=== PATIENT | female | born 1965 | race Caucasian/White ===

== ENCOUNTER → 2017-12-14 10:44 | Outpatient (CLI) | payer MEDICAID, SELFPAY ==
[2017-12-18 16:28] LABS: HPV Reflexed? NOT INDICATED
== END ==
PROVIDERS: Family Provider Family Medicine; PCP Family Medicine; Visit Provider Obstetrics & Gynecology
DX: Z12.4 Encounter for screening for malignant neoplasm of cervix (principal)
CPT/HCPCS: 88175; G0145

== ENCOUNTER → 2018-03-26 16:11 | Outpatient (CLI) | payer MEDICAID, SELFPAY ==
--- NOTE | 2018-03-26 16:15 | BI_ITS ---
MAMMOGRAPHY - BILATERAL SCREENING REASON FOR EXAM: Female, 52 years old. Routine annual screening examination. PERTINENT HISTORY: Non-contributory. TECHNIQUE: Digital bilateral breast chandan (3D mammographic acquisition) in the CC and MLO projections. 2-D mediolateral oblique (MLO) and craniocaudad (CC) views of both breasts were obtained. CAD: Full Field Digital Mammography with Computer Added Detection was performed. COMPARISON: None. Baseline examination. FINDINGS: Breast Composition: There are scattered areas of fibroglandular density. There are no dominant masses or suspicious calcifications. No other significant abnormalities are identified. BI/SCREENING MAMM (CAD), BILAT IMPRESSION: Negative screening mammogram. Yearly followup mammogram recommended. (A) ASSESSMENT CATEGORY: BIRADS Category 1: Negative. A letter regarding these results will be sent to the patient by the facility within 30 days. Approximately 10% of breast cancers are not detected by mammography. A normal mammogram should not delay biopsy of a clinically suspicious abnormality. [id number] Electronically Signed: Logan Ashley MD at 8:45 EDT Tel [phone], Service support ,
== END ==
PROVIDERS: Family Provider Family Medicine; PCP Family Medicine; Visit Provider Obstetrics & Gynecology
DX: Z12.31 Encounter for screening mammogram for malignant neoplasm of breast (principal)
CPT/HCPCS: 77063; 77067

== ENCOUNTER → 2018-04-02 09:16 | Outpatient (CLI) | payer MEDICAID, SELFPAY ==
[2018-04-02 11:58] LABS: Absolute Lymphocyte Count 3.04 X10^3/ul (0.83-4.51); Absolute Neutrophil Count 3.6 X10^3/uL (2.0-7.7); Basophil# 0.04 X10^3/uL; Basophil% 0.5 % (0-1); Eosinophil# 0.27 X10^3/uL; Eosinophils% 3.6 % (0-5); Hematocrit 46.2 % (37-47); Hemoglobin 14.8 g/dl (12.0-15.0); Lymphocyte # 3.04 X10^3/ul (4.0); Lymphocyte % 40.3 % (19-41); Mean Corpuscular Hgb 26.2 pg (27.0-32.0); Mean Corpuscular Volume 81.9 fL (81-99); Mean Platelet Vol. 10.6 fl (6.2-12.0); Monocyte# 0.61 X10^3/uL; Monocyte% 8.1 % (0-10); Neutrophil # 3.57 X10^3/uL (2.7-7.7); Neutrophil % 47.2 % (47-70); POSITIVE COUNT NO; POSITIVE DIFFERENTIAL NO; POSITIVE MORPHOLOGY NO; Platelet Count 214 K/mm3 (150-450); RBC Distribution Width CV 14.2 % (11.6-14.6); RBC Distribution Width SD 42.3 fl (35.1-43.9); Red Blood Count 5.64 M/mm3 (4.2-5.4); White Blood Count 7.6 K/mm3 (4.4-11.0)
[2018-04-02 12:18] LABS: ALB/GLOB Ratio 1.2 RATIO (0.9-2.4); AST(SGOT) 30 U/L (15-37); Alanine Aminotransfer ALT/SGPT 46 U/L (13-56); Albumin, Serum 3.9 g/dL (3.2-5.0); Alkaline Phosphatase 87 U/L (45-117); Anion Gap 7 (5-15); BUN 11 mg/dL (7-18); BUN/Creat Ratio 16.5 RATIO (10-20); Calcium,Total 8.9 mg/dL (8.5-10.1); Chloride 107 mmol/L (98-107); Cholesterol 134 mg/dL (200); Creatinine, Serum 0.67 mg/dL (0.55-1.02); EST Glomerular Filtration Rate 98 mL/min (>60); Est Glom Filt Rate - Afr Amer 119 mL/min (>60); Globulin 3.3 g/dL (2.2-4.2); Glucose 153 mg/dL (74-106); High Density Lipoprotein 31 mg/dL; Protein, Total 7.2 g/dL (6.4-8.2); Sodium Level 144 mmol/L (136-145); T4 Free Direct 0.97 ng/dL (0.76-1.46); Thyroid Stim Hormone (TSH) 3.32 uIU/mL (0.358-3.74); Triglycerides 243 mg/dL; Very Low Density Lipoprotein 49 mg/dL (5-40)
== END ==
PROVIDERS: Family Provider Family Medicine; PCP Family Medicine; Visit Provider Family Medicine
DX: E78.5 Hyperlipidemia, unspecified (principal); E11.65 Type 2 diabetes mellitus with hyperglycemia; I10 Essential (primary) hypertension
CPT/HCPCS: 36415; 80053; 80061; 84439; 84443; 85025

== ENCOUNTER → 2018-07-15 13:15 | Outpatient (CLI) | payer MEDICAID, SELFPAY | PROVIDERS: Family Provider Family Medicine; PCP Family Medicine; Visit Provider Surgery | DX: Z00.00 Encounter for general adult medical examination without abnormal findings (principal) ==

== ENCOUNTER → 2018-09-03 08:12 | Outpatient (CLI) | payer MEDICAID, SELFPAY ==
[2018-06-10 09:40] VITALS: BMI 32.6
[2018-09-03 09:36] LABS: Hemoglobin A1c 10.8 % (4.2-6.3)
[2018-09-03 09:44] LABS: Microalbumin:Creatinine Ratio 45.9 mg/g CRE (<30 mg/g CRE)
[2018-09-03 10:02] LABS: ALB/GLOB Ratio 1.1 RATIO (0.9-2.4); AST(SGOT) 17 U/L (15-37); Alanine Aminotransfer ALT/SGPT 37 U/L (13-56); Albumin, Serum 3.7 g/dL (3.2-5.0); Alkaline Phosphatase 119 U/L (45-117); Anion Gap 8 (5-15); BUN 11 mg/dL (7-18); BUN/Creat Ratio 16.3 RATIO (10-20); Calcium,Total 8.7 mg/dL (8.5-10.1); Chloride 103 mmol/L (98-107); Creatinine, Serum 0.67 mg/dL (0.55-1.02); EST Glomerular Filtration Rate 97 mL/min (>60); Est Glom Filt Rate - Afr Amer 118 mL/min (>60); Globulin 3.4 g/dL (2.2-4.2); Glucose 334 mg/dL (74-106); Protein, Total 7.1 g/dL (6.4-8.2); Sodium Level 138 mmol/L (136-145); Thyroid Stim Hormone (TSH) 2.33 uIU/mL (0.358-3.74)
--- OUTSIDE RECORDS SUMMARY | 2018-12-05 13:05 | XMS RPT_ITS ---
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 Comment: <200 mg/dL Desirable 200-240 mg/dL Borderline >240 mg/dL High Risk LAB L501.5000 mg/dL High TRIG 243 Result Comment: The drugs N-Acetylcysteine and Metamizole may falsely depress this assay. Serum Triglycerides Reference Interval Normal <150 mg/dL Borderline high 150 - 199 mg/dL High 200 - 499 mg/dL Very High > or = 500 mg/dL LAB L501.6400 mg/dL Low HDL 31 Result Comment: The drugs N-Acetylcysteine and Metamizole may falsely depress this assay. Reference Range HDL <40 mg/dL Low HDL Cholesterol HDL >or= 60 mg/dL High HDL Cholesterol LAB L501.6500 0-130 mg/dL Normal LDL 54 LAB L501.6600 5-40 mg/dL High VLDL 49 Performed By: #### L500.4050, L500.4100, L501.9520, L506.0400 #### [facility] [address]. [place], [place], [address] THYROID STIM HORMONE Collected: 04/02/2018 Status: F Source: [place] (TSH) 9:20 AM [facility] REPOSITORY TYPE CODE TESTS RESULT OUT OF RANGE REFERENCE UNITS LAB L501.9520 0.358-3.74 uIU/mL Normal TSH 3.32 Performed By: #### L500.4050, L500.4100, L501.9520, L506.0400 #### [facility] [address] [place], [address] T4 FREE DIRECT Collected: 04/02/2018 Status: F Source: MARIAH 9:20 AM [facility] REPOSITORY TYPE CODE TESTS RESULT OUT OF RANGE REFERENCE UNITS LAB L506.0400 0.76-1.46 ng/dL Normal T4 FREE 0.97 DIRECT Performed By: #### L500.4050, L500.4100, L501.9520, L506.0400 #### [facility] [address] [place], [address] SCREENING MAMM (CAD), Observed: 03/26/2018 Status: F Source: MARIA[place] BILAT 4:15 PM [facility] REPOSITORY [facility] Imaging Services [address] [place] [address] SCREENING MAMM (CAD), BIL MR#: [id number] Acct: [id number] Name: VANGIE ROBLES Rep #: [id number] : 1965 F 52 From: Logan Ashley MD PCP: Mohamud Gonzalez MD Status: REG CLI Study: SCREENING MAMM (CAD), BILAT Date of Exam: 03/26/18 Exam# [id number] Ordering Dr: Bulmaro Patel MD MAMMOGRAPHY - BILATERAL SCREENING REASON FOR EXAM: Female, 52 years old. Routine annual screening examination. PERTINENT HISTORY: Non-contributory. TECHNIQUE: Digital bilateral breast chandan (3D mammographic acquisition) in the CC and MLO projections. 2-D mediolateral oblique (MLO) and craniocaudad (CC) views of both breasts were obtained. CAD: Full Field Digital Mammography with Computer Added Detection was performed. COMPARISON: None. Baseline examination. FINDINGS: Breast Composition: There are scattered areas of fibroglandular density. There are no dominant masses or suspicious calcifications. No other significant abnormalities are identified. BI/SCREENING MAMM (CAD), BILAT IMPRESSION: Negative screening mammogram. Yearly followup mammogram recommended. (A) ASSESSMENT CATEGORY: BIRADS Category 1: Negative. A letter regarding these results will be sent to the patient by the facility within 30 days. Approximately 10% of breast cancers are not detected by mammography. A normal mammogram should not delay biopsy of a clinically suspicious abnormality. [id number] Electronically Signed: Logan Ashley MD at 8:45 EDT Tel [phone], Service support , CC: Bulmaro Patel MD; Mohamud Gonzalez MD Medical Logistics Specialist: Signed PAP I-G W/RFX HRHPV Collected: 12/14/2017 Status: F Source: MARIAH 10:40 AM [facility] REPOSITORY Order Comment: CYTOLOGY INFORMATION: - CLINICAL INFORMATION: - DATE LMP/MENOPAUSE: MENOPAUSE - COLLECTION VIAL: Thin Prep Vial - AEROPHYSICS ENGINEER SOURCE: CERVICAL/ENDOCERVICAL - COLLECTION TECHNIQUE: BRUSH/SPATULA Specimen Comment: [id number] Specimen Comment: No. of containers..01 ThinPrep Vial TYPE CODE TESTS RESULT OUT OF RANGE REFERENCE UNITS LAB L7400.0800 . Normal DIAGN Comment Result Comment: NEGATIVE FOR INTRAEPITHELIAL LESION AND MALIGNANCY. LAB L7400.0900 . Normal ADEQ Comment Result Comment: Satisfactory for evaluation. Endocervical and/or squamous metaplastic cells (endocervical component) are present. LAB L7400.1400 . Normal PERFORM Comment Result Comment: Jazmín Negron, Electronics Engineering Technologist (ASCP) LAB L7400.2575 . Normal TEST METHOD Comment Result Comment: This liquid based ThinPrep(R) pap test was screened with the use of an image guided system. LAB L7400.2600 . Normal . COMM LAB L7400.2700 . Normal PAPSMR Comment Result Comment: The Pap smear is a screening test designed to aid in the detection of premalignant and malignant conditions of the uterine cervix. It is not a diagnostic procedure and should not be used as the sole means of detecting cervical cancer. Both false-positive and false-negative reports do occur. LAB L7400.2800 . Normal HPV RFLX Comment Result Comment: The HPV DNA reflex criteria were not met with this specimen result therefore, no HPV testing was performed. Performed at: [facility] [id number] Household Appliance Assembler: Adele Domínguez MD, Phone: [phone] Performed By: #### L7400.0350 #### [facility] (refer to report for specific site) refer to report for address and phone number ALLERGIES ALLERGIES DATE TYPE / CODE NAME / CODE REACTION SEVERITY SOURCE 2018 Drug ADINA Rash Unknown Mariah [facility] Allergy/4160 Inhibitors/F Hospital [address](SNOMED [id number](RX Repository CT) NORM) ENCOUNTERS ENCOUNTERS ADMIT/DISCHARGE ACCOUNT ADMITTING ENCOUNTER LOCATION SOURCE NUMBER CLASS 09/11/2018/ [id number] Ambulatory BMSBuilding:B [facility]iah 8 2 [facility] Repository 09/03/2018 [id number] Ambulatory [place] Mariah 3 [facility] ing:LAB Repository 07/15/2018 [id number] Ambulatory [place] Mariah 4 [facility] ing:EN Repository 06/10/2018/ [id number] Ambulatory BMSBuilding:B [place] 8 2 [facility] Repository 05/06/2018/ [id number] Ambulatory BMSBuilding:B [place] 8 1 [facility] Repository 04/23/2018/ [id number] Ambulatory BMSBuilding:B [place] 8 1 [facility] Repository 04/02/2018 [id number] Ambulatory Mariah [place] 3 [facility] ing:BFHLAB Repository 03/26/2018 [id number] [place] 4 [facility] ing:OPBI Repository 12/14/2017 [id number] Ambulatory [place] Mariah 0 [facility] ing:LABSPEC Repository PAYERS PAYERS ENCOUNTER GUARANTOR PAYER SUBSCRIBER SOURCE 2018 VANGIE Mccord Primary Insurance:[facility] VANGIE K Mariah [id number] [facility] PLANPolicy VACCODOB: [facility] Number: [id number] Hospital [address]Hae: 419 [id number] Repository [phone] () Date:[id number] [address] [address]DH: 2018 Secondary NOT GIVENUNK [place] Insurance:SELF PAY [facility] Number: Effective Repository Date:2018-09-09 09/03/2018 VANGIE K Primary Insurance:[facility] VANGIE Mccord [place] [id number] [facility] PLANPolicy VACCODOB: [facility] Number: [id number] Hospital [address]Rby: 419 [id number] Repository [phone] () Date:[id number] [address] [address]HZ: 09/03/2018 Secondary NOT GIVENUNK [place] Insurance:SELF PAY [facility] Number: Effective Repository Date:2018-09-03 07/15/2018 VANGIE K Primary Insurance:[facility] VANGIE Mccord [place] [id number] [facility] PLANPolicy VACCODOB: [facility] Number: [id number] Hospital [address]Dzm: ([phone] [id number] Repository [phone] () Date:[id number] [address] [address]GP: 07/15/2018 Secondary NOT GIVENUNK [place] Insurance:SELF PAY [facility] Number: Effective Repository Date:2018-04-23 06/10/2018 VANGIE K Primary Insurance:[facility] VANGIE Mccord [place] [id number] [facility] [place]ACCODOB: [facility] Number: [id number] Hospital [address]Rbj: 419 [id number] Repository [phone] () Date:[id number] [address] [address]PQ: 06/10/2018 Secondary NOT GIVENUNK [place] Insurance:SELF PAY [facility] Number: Effective Repository Date:2018-06-10 05/06/2018 VANGIE K Primary Insurance:[facility] VANGIE Mccord [place] [id number] [facility] PLANPoly VACCODOB: [facility] Number: [id number] Hospital [address]Blq: 419 [id number] Repository [phone] (HP) Date:0112-05-99MB [address] [address]QC: 05/06/2018 Secondary NOT GIVENUNK [place] Insurance:SELF PAY [facility] Number: Effective Repository Date:2018-05-06 04/23/2018 VANGIE K Primary Insurance:[facility] VANGIE Mccord [place] [id number] [facility] VACCODOB: [facility] Number: [id number] Hospital [address]Rkb: [phone] [id number] Repository [phone] (HP) Date:3522-09-38EK [address] [address]QW: 04/23/2018 Secondary NOT GIVENUNK [place] Insurance:SELF PAY [facility] Number: Effective Repository Date:2018-04-23 04/02/2018 VANGIE K Primary Insurance:[facility] VANGIE Mccrod [place] [id number] [facility] VACCODOB: [facility] Number: [id number] Hospital [address]Vuw: 419 [id number] Repository [phone] (HP) Date:4934-56-84AQ [address] [address]KR: 04/02/2018 Secondary NOT GIVENUNK [place] Insurance:SELF PAY [facility] Number: Effective Repository Date:2018-04-02 03/26/2018 VANGIE K Primary Insurance:[facility] VANGIE Mccord [place] [id number] [facility] VACCODOB: [facility] Number: [id number] Hospital [address]Qrq: 419 [id number] Repository [phone] (HP) Date:0470-78-50XX [address] [address]RL: 03/26/2018 Secondary NOT GIVENUNK [place] Insurance:SELF PAY [facility] Hospital Number: Effective Repository Date:2017-12-18 12/14/2017 Vangie Primary Insurance:[facility] Vangie VaccoDOB: [place] [id number] [facility] [id number] [place] Number: [facility] [address]Rdo: [phone] [id number] Repository [phone] () Date:[id number] [address] [place] [address]RD: 12/14/2017 Secondary NOT GIVENUNK [place] Insurance:SELF PAY [facility] Hospital Number: Effective Repository Date:2017-12-14
== END ==
PROVIDERS: Family Provider Family Medicine; PCP Family Medicine; Referring Provider Nurse Practitioner; Visit Provider Nurse Practitioner
DX: E11.65 Type 2 diabetes mellitus with hyperglycemia (principal)
CPT/HCPCS: 36415; 80053; 82043; 82570; 83036; 84443

== ENCOUNTER → 2018-12-09 09:56 | Outpatient (CLI) | payer MEDICAID, SELFPAY ==
[2018-09-11 10:53] VITALS: BMI 33.5
[2018-12-09 10:04] LABS: Mucous, Urine 0 SEEN /hpf (<or=2+); Red Blood Cells-Urine 0 SEEN /hpf (0-5); White Blood Cells 0 SEEN /hpf (0-5)
[2018-12-09 11:12] LABS: Color, Urine Yellow (Yellow); Glucose, Dipstick 250 mg/dl (Normal); Ketone-Dipstick Negative (Negative); Leukocyte Esterase-Dipstick Negative /ul (Negative); Nitrite-Dipstick Negative (Negative); Occult Blood-Urine Negative /ul (Negative); Protein-Dipstick 15 mg/dl (Negative); Specific Gravity, Urine 1.015 (1.002-1.030); Urine Bilirubin Dipstick Negative (Negative); Urine Clarity Clear (Clear); Urine Urobilinogen Normal (Normal)
[2018-12-09 11:19] LABS: Bacteria 1+ /hpf (None Seen); Squamous Epithelial Cells - UA 0-5 SEEN /hpf (5-10)
[2018-12-09 11:32] LABS: Microalbumin,Random Urine 81.7 mg/L (NO RANGE EST.)
[2018-12-09 11:38] LABS: ALB/GLOB Ratio 1.1 RATIO (0.9-2.4); AST(SGOT) 20 U/L (15-37); Alanine Aminotransfer ALT/SGPT 39 U/L (13-56); Albumin, Serum 3.8 g/dL (3.2-5.0); Alkaline Phosphatase 119 U/L (45-117); Anion Gap 4 (5-15); BUN 11 mg/dL (7-18); BUN/Creat Ratio 18.1 RATIO (10-20); Calcium,Total 8.8 mg/dL (8.5-10.1); Chloride 107 mmol/L (98-107); Cholesterol 132 mg/dL (200); Creatinine, Serum 0.61 mg/dL (0.55-1.02); EST Glomerular Filtration Rate 109 mL/min (>60); Est Glom Filt Rate - Afr Amer 132 mL/min (>60); Globulin 3.4 g/dL (2.2-4.2); Glucose 212 mg/dL (74-106); High Density Lipoprotein 30 mg/dL; Potassium 3.8 mmol/L (3.5-5.1); Protein, Total 7.2 g/dL (6.4-8.2); Sodium Level 140 mmol/L (136-145); Triglycerides 315 mg/dL; Very Low Density Lipoprotein 63 mg/dL (5-40)
== END ==
PROVIDERS: Family Provider Family Medicine; PCP Family Medicine; Referring Provider Nurse Practitioner; Visit Provider Nurse Practitioner
DX: E11.65 Type 2 diabetes mellitus with hyperglycemia (principal)
CPT/HCPCS: 36415; 80053; 80061; 81001; 82043; 82570; 83036

== ENCOUNTER 2019-09-15 15:37 | Emergency (ER) | payer MEDICAID, SELFPAY ==
[2018-12-11 10:02] VITALS: BMI 33.5
[2019-09-15 15:38] VITALS: BP 165/91; PULSE 88; PULSE 97; RESP 17; RESP 18; TEMP 36.5; O2SAT 97; BMI 36.6
--- NOTE | 2019-09-15 17:16 | EKG12_ITS ---
Test Reason : Blood Pressure : / mmHG Vent. Rate : 084 BPM Atrial Rate : 084 BPM P-R Int : 154 ms QRS Dur : 072 ms QT Int : 366 ms P-R-T Axes : 036 -06 056 degrees QTc Int : 432 ms Normal sinus rhythm Inferior infarct , age undetermined cannot be excluded Cannot rule out Anterior infarct , age undetermined Abnormal ECG Confirmed by LOKI HENDERSON, MACK ([id number]), publishing editor BRYAN AMIN ([id number]) on 09/18/2019 11:15:42 AM Referred By: DIANA Confirmed By:MACK MANJARREZ MD
--- NOTE | 2019-09-15 17:20 | ED.DCSUM_ITS ---
History of Present Illness Chief Complaint: Hypertension Informant: Patient Onset: Days Context: Gradual Onset Timing: Continuous Narrative: Patient is a 54-year-old female with history of diabetes and hypertension prese nting with elevated blood pressure readings at home as well as increased swelling of her lower extremities. Patient states for the past 10 days or so she has had increased swelling of her lower extremities, right is worse than left. She states is in her bilateral feet. She states she is having a lot of aching and deep pain in her right foot as well as her right calf. 4 days ago she checked her blood pressure and found it to be 199/140 and then the following day was 175/120. The last day or 2 its bed around 160/70. Patient was reading online and was concerned that she could be having a heart attack or dying so she came to the emergency room. She does to the past few days she has increased her amlodipine to twice a day. She states she is been on Norvasc for a couple years. She denies any associated shortness of breath, chest pain or difficulty breathing. She denies any history of DVTs. She is not on any hormonal therapy and she is had no recent immobilization. Patient has had some slight lower back pain and is not sure if it is related. She denies any alcohol, drug or tobacco use. She denies any other complaints at this time. She states she always snores but has had no difficulty laying flat. She notes over the past 6 months she has been waking up at night because of her snoring. She has an appointment to see her PCP in a couple weeks but did not want a wait this long to have this evaluated. Past Medical History - Allergies and Home Meds Allergies/Adverse Reactions: Allergies ADINA Inhibitors Allergy (Verified 09/15/19 15:37) Rash Primary Care Physician: Mohamud Gonzalez MD [Primary Care Provider] - Past Medical History: - - HTN, HLD, DM2 Surgical History: noncontributory Lives: With Family Smoking Status: Former smoker Review of Systems General: Denies: Chills, Fever, Sweats Eyes: Denies: Visual changes - bilaterally, Diplopia ENT: Denies: Rhinorrhea, Sore throat Cardiovascular: Denies: Chest pain, Palpitations Respiratory: Denies: Dyspnea, Cough, Dyspnea on exertion Gastrointestinal: Denies: Abdominal pain, Nausea, Vomiting, Diarrhea, Melena, Hematochezia Genitourinary: Denies: Dysuria, Hematuria, Frequency Musculoskeletal: Reports: Back pain, Swelling - R>L, , Extremity Pain Skin: Denies: Rash, Wounds Neurological: Denies: Headache, Weakness, Numbness Physical Exam Vital Signs/Narrative: Vital Signs Temp Pulse Resp BP Pulse Ox 09/15/19 15:38 97.7 F L 97 18 165/91 H 97 Inital Vital Signs reviewed: Yes General: Well nourished, Well developed, No Acute Distress Head: Normocephalic, Atraumatic Eyes: Perrl, EOMI ENT: Moist mucous membranes, No rhinorrhea Neck: Supple, Nontender Cardiovascular: Regular rate, Regular rhythm, No murmurs Respiratory: No distress, CTA bilaterally, Chest nontender Abdomen: Soft, Nontender, Nondistended, Normal bowel sounds Back: Nontender, Normal Inspection Extremities: Nontender, Tenderness - Right foot, Edema - Nonpitting pedal edema, right greater than left, Calf Tenderness - Right Skin: Normal color, No rash Neurological: Alert, Oriented x3, Cranial nerves II-XII grossly intact, Normal Strength, Normal Sensation Psychological: Normal affect, Normal Mood Diagnostic/Tx/Re-eval Chest X-Ray - ED: 2 View, Read by ED Physician, No Acute Disease Clinical Impression(s) from Imaging Studies Venous Duplex 09/15/19 17:26 IMPRESSION: 1. No demonstrated deep venous thrombosis of the bilateral lower extremities. 2. Mild subcutaneous edema and small amounts of fluid are seen in the upper calf. A 3.5 cm left Boggs cyst is also present. Electronically Signed: Lencho Nguyen MD at 19:13 EST , Service support , Chest X-Ray 09/15/19 18:00 IMPRESSION: No acute process Electronically Signed: Lencho Nguyen MD at 18:29 EST , Service support , Laboratory Data 09/15/19 09/15/19 09/15/19 17:50 17:50 17:50 WBC 8.1 RBC 5.52 H Hgb 14.2 Hct 43.9 MCV 79.5 L MCH 25.7 L MCHC 32.3 RDW Std Deviation 40.3 RDW Coeff of Radha 14.1 Plt Count 251 MPV 10.0 Immature Gran % (Auto) 0.900 Neut % (Auto) 57.8 Lymph % (Auto) 30.7 Hutchinson % (Auto) 8.5 Eos % (Auto) 1.5 Baso % (Auto) 0.6 Absolute Neuts (auto) 4.7 Absolute Lymphs (auto) 2.50 Nucleated RBC % 0 Sodium 139 Potassium 3.9 Chloride 104 Carbon Dioxide 29.0 Anion Gap 6 BUN 15 Creatinine 0.78 Estim Creat Clear Calc 68.21 Est GFR (MDRD) Af Amer 99 Est GFR (MDRD) Non-Af 82 BUN/Creatinine Ratio 19.3 Glucose 296 H Calcium 9.6 Troponin I < 0.015 B-Natriuretic Peptide 3.9 Urine Color Urine Clarity Urine pH Ur Specific [place] Urine Protein Urine Glucose (UA) Urine Ketones Urine Occult Blood Urine Nitrite Urine Bilirubin Urine Urobilinogen Ur Leukocyte Esterase Urine RBC Urine WBC Ur Squamous Epith Cells Urine Bacteria Urine Mucus 09/15/19 18:50 WBC RBC Hgb Hct MCV MCH MCHC RDW Std Deviation RDW Coeff of Radha Plt Count MPV Immature Gran % (Auto) Neut % (Auto) Lymph % (Auto) Hutchinson % (Auto) Eos % (Auto) Baso % (Auto) Absolute Neuts (auto) Absolute Lymphs (auto) Nucleated RBC % Sodium Potassium Chloride Carbon Dioxide Anion Gap BUN Creatinine Estim Creat Clear Calc Est GFR (MDRD) Af Amer Est GFR (MDRD) Non-Af BUN/Creatinine Ratio Glucose Calcium Troponin I B-Natriuretic Peptide Urine Color Yellow Urine Clarity Sl. Cloudy Urine pH 6.0 Ur Specific [place] 1.025 Urine Protein 30 H Urine Glucose (UA) 1000 H Urine Ketones 5 H Urine Occult Blood Negative Urine Nitrite Negative Urine Bilirubin Negative Urine Urobilinogen Normal Ur Leukocyte Esterase Negative Urine RBC 0 SEEN Urine WBC 0 SEEN Ur Squamous Epith Cells 0-5 SEEN Urine Bacteria 0 SEEN Urine Mucus 0 SEEN - Rhythm Strip Rhythm Strip: Sinus Rhythm Rate: 84 Ectopy: None - EKG Initial EKG Interpretation: Sinus Rhythm, - - Sinus rhythm at a rate of 84 Normal intervals Normal axis Normal ST segments - Medical Decision Making Patient is evaluated for atraumatic swelling of her lower extremities, right greater than left. She also notes her blood pressures been elevated at home. Physical exam is consistent with lower extremity edema. Venous duplex does not show any DVT. She does have a likely Boggs's cyst of the left lower extremity however I do not think this is related to her presentation. While her blood pressure is mildly elevated, it is not dangerously high. Her chest x-ray is not show any signs of pulmonary vascular congestion or CHF. proBNP is normal. Troponin is normal as well as her EKG. Her CBC is grossly normal. Her BMP is remarkable only for hyperglycemia. She has a normal anion gap. The exact cause of her edema is not clear however I do suspect it might be a medication side effect from her Norvasc. Because of this she will be switched from Norvasc to hydrochlorothiazide. Patient does have a follow-up appointment with her PCP in about 2 weeks. She is encouraged to keep it. Patient is counseled on signs and symptoms requiring return to the emergency room. Patient verbalizes agreement and understand this plan. Patient discharged home in stable and improved condition. ED Disposition - Plan for ED Patient: Disposition: Home or Assisted Living Diagnosis: Edema, lower extremity Instructions: ED Peripheral Edema, Bilateral, HYPERTENSION, Established Prescriptions: Hydrochlorothiazide [Hctz] 25 mg PO DAILY #21 tab Prescription Printed Referrals: Mohamud Gonzalez MD [Primary Care Provider] - Additional Instructions: Your work-up for your leg swelling was normal today. You have no evidence of a blood clot, heart failure, heart attack or significant electrolyte abnormalities. I think you are safe to follow-up outpatient. It is possible that your leg swelling could be a side effect of your blood pressure medication, amlodipine. Stop taking that and start taking the new medication hydrochlorothiazide. Please make sure you follow-up with your primary care doctor. Return to the emergency room should you develop any worsening symptoms.
--- NOTE | 2019-09-15 17:26 | US_ITS ---
STUDY: VENOUS DOPPLER ULTRASOUND - BILATERAL LOWER EXTREMITIES REASON FOR EXAM: Female, 54 years old. BILAT SWELLING AND HYPERTENSION TECHNIQUE: Ultrasound evaluation of the deep vein system to include beatty-scale imaging and compression was performed. Beatty-scale imaging and Doppler sonographic evaluation, including duplex spectral analysis and qualitative color flow sonography, was performed. COMPARISON: None. FINDINGS: RIGHT LEG Common Femoral Vein: Normal compression, spontaneity and augmentation. Normal color Doppler. Common Femoral Vein/Greater Saphenous Junction: Normal compression, spontaneity and augmentation. Normal color Doppler. Femoral Proximal: Normal compression, spontaneity and augmentation. Normal color Doppler. Femoral Middle: Normal compression, spontaneity and augmentation. Normal color Doppler. Femoral Distal: Normal compression, spontaneity and augmentation. Normal color Doppler. Popliteal Vein: Normal compression, spontaneity and augmentation. Normal color Doppler. Posterior Tibial Vein: Normal compression, spontaneity and augmentation. Normal color Doppler. Peroneal Vein: Normal compression, spontaneity and augmentation. Normal color Doppler. LEFT LEG Mild subcutaneous edema and small amounts of fluid are seen in the upper calf. A 3.5 cm left Boggs cyst is also present. Common Femoral Vein: Normal compression, spontaneity and augmentation. Normal color Doppler. Common Femoral Vein/Greater Saphenous Junction: Normal compression, spontaneity and augmentation. Normal color Doppler. Femoral Proximal: Normal compression, spontaneity and augmentation. Normal color Doppler. Femoral Middle: Normal compression, spontaneity and augmentation. Normal color Doppler. Femoral Distal: Normal compression, spontaneity and augmentation. Normal color Doppler. Popliteal Vein: Normal compression, spontaneity and augmentation. Normal color Doppler. Posterior Tibial Vein: Normal compression, spontaneity and augmentation. Normal color Doppler. Peroneal Vein: Normal compression, spontaneity and augmentation. Normal color Doppler. US/Venous Duplex Imag/Yasir Extrem IMPRESSION: 1. No demonstrated deep venous thrombosis of the bilateral lower extremities. 2. Mild subcutaneous edema and small amounts of fluid are seen in the upper calf. A 3.5 cm left Boggs cyst is also present. Electronically Signed: Lencho Nguyen MD at 19:13 EST , Service support ,
[2019-09-15 17:53] VITALS: BP 143/88; PULSE 87; RESP 19; O2SAT 97
--- NOTE | 2019-09-15 18:00 | RAD_ITS ---
STUDY: X-RAY CHEST REASON FOR EXAM: Female, 54 years old. HYPERTENSION TECHNIQUE: PA and lateral views of the chest. COMPARISON: October 17, 2016 FINDINGS: The lungs are clear and expanded. There is no demonstrated pleural abnormality. Normal size heart. Normal mediastinum and iftikhar. Normal visualized pulmonary arteries. Normal visualized aortic arch and descending thoracic aorta. There are diffuse degenerative changes of the visualized thoracic spine. Normal visualized ribs, clavicles, and shoulders. There is no demonstrated abnormality of the visualized soft tissue structures of the upper abdomen. RAD/Chest PA and Lateral IMPRESSION: No acute process Electronically Signed: Lencho Nguyen MD at 18:29 EST , Service support ,
[2019-09-15 18:12] LABS: Absolute Neutrophil Count 4.7 X10^3/uL (2.0-7.7); Basophil# 0.05 X10^3/uL; Basophil% 0.6 % (0-1); Eosinophil# 0.12 X10^3/uL; Eosinophils% 1.5 % (0-5); Hematocrit 43.9 % (37-47); Hemoglobin 14.2 g/dL (12.0-15.0); Lymphocyte % 30.7 % (19-41); Mean Corp Hgb Conc 32.3 g/dL (32-36); Mean Corpuscular Hgb 25.7 pg (27.0-32.0); Mean Corpuscular Volume 79.5 fL (81-99); Monocyte# 0.69 X10^3/uL; Monocyte% 8.5 % (0-10); NRBC Flagged by Analyzer 0 % (0-5); Neutrophil # 4.71 X10^3/uL (2.7-7.7); Neutrophil % 57.8 % (47-70); Platelet Count 251 K/mm3 (150-450); RBC Distribution Width CV 14.1 % (11.6-14.6); RBC Distribution Width SD 40.3 fl (35.1-43.9); Red Blood Count 5.52 M/mm3 (4.2-5.4); White Blood Count 8.1 K/mm3 (4.4-11.0)
[2019-09-15 18:23] LABS: Anion Gap 6 (5-15); BUN 15 mg/dL (7-18); BUN/Creat Ratio 19.3 RATIO (10-20); Calcium,Total 9.6 mg/dL (8.5-10.1); Chloride 104 mmol/L (98-107); Creatinine, Serum 0.78 mg/dL (0.55-1.02); EST Glomerular Filtration Rate 82 mL/min (>60); Est Glom Filt Rate - Afr Amer 99 mL/min (>60); Estimated Creatinine Clearance 68.21 ml/min; Glucose 296 mg/dL (74-106); Potassium 3.9 mmol/L (3.5-5.1); Sodium Level 139 mmol/L (136-145)
[2019-09-15 18:50] LABS: BNP,B-Type NATRIURETIC PEPTIDE 3.9 pg/mL (0-100)
[2019-09-15 19:00] VITALS: BP 145/74; PULSE 85; RESP 20; O2SAT 95
[2019-09-15 19:01] LABS: Bacteria 0 SEEN /hpf (None Seen); Mucous, Urine 0 SEEN /hpf (<or=2+); Red Blood Cells-Urine 0 SEEN /hpf (0-5); White Blood Cells 0 SEEN /hpf (0-5)
[2019-09-15 19:30] LABS: Color, Urine Yellow (Yellow); Glucose, Dipstick 1000 mg/dl (Normal); Ketone-Dipstick 5 mg/dl (Negative); Leukocyte Esterase-Dipstick Negative /ul (Negative); Nitrite-Dipstick Negative (Negative); Occult Blood-Urine Negative /ul (Negative); Protein-Dipstick 30 mg/dl (Negative); Specific Gravity, Urine 1.025 (1.002-1.030); Urine Bilirubin Dipstick Negative (Negative); Urine Clarity Sl. Cloudy (Clear); Urine Urobilinogen Normal (Normal)
[2019-09-15 19:50] LABS: Squamous Epithelial Cells - UA 0-5 SEEN /hpf (5-10)
[2019-09-15 20:09] VITALS: BP 149/79; PULSE 83; RESP 19; O2SAT 97
[2019-09-15 20:25] VITALS: BP 149/79; PULSE 82; RESP 15; O2SAT 94
== END 2019-09-15 20:50 | disposition home or self-care (01) ==
PROVIDERS: Emergency Provider Emergency Medicine; Family Provider Family Medicine; PCP Family Medicine
DX: I10 Essential (primary) hypertension (principal); R60.0 Localized edema; E11.65 Type 2 diabetes mellitus with hyperglycemia; E78.5 Hyperlipidemia, unspecified; Z79.4 Long term (current) use of insulin; Z79.84 Long term (current) use of oral hypoglycemic drugs; Z79.82 Long term (current) use of aspirin; Z87.891 Personal history of nicotine dependence
CPT/HCPCS: 71046; 80048; 81001; 83880; 84484; 85025; 93005; 93970; 99284; A4216

== ENCOUNTER → 2019-10-07 14:05 | Outpatient (CLI) | payer MEDICAID, SELFPAY ==
[2019-09-15 15:38] VITALS: BMI 36.6
[2019-10-07 15:56] LABS: Anion Gap 4 (5-15); BUN 14 mg/dL (7-18); Calcium,Total 9.7 mg/dL (8.5-10.1); Chloride 99 mmol/L (98-107); EST Glomerular Filtration Rate 61 mL/min (>60); Est Glom Filt Rate - Afr Amer 74 mL/min (>60); Glucose 411 mg/dL (74-106); Sodium Level 135 mmol/L (136-145)
== END ==
PROVIDERS: PCP Family Medicine; Visit Provider Family Medicine
DX: E11.65 Type 2 diabetes mellitus with hyperglycemia (principal); I10 Essential (primary) hypertension; M65.342 Trigger finger, left ring finger; M65.332 Trigger finger, left middle finger
CPT/HCPCS: 36415; 80048; 97035; 97110

== ENCOUNTER → 2019-10-17 10:47 | Outpatient (CLI) | payer MEDICAID, SELFPAY ==
--- NOTE | 2019-10-17 10:48 | BI_ITS ---
MAMMOGRAPHY - BILATERAL SCREENING REASON FOR EXAM: Female, 54 years old. Routine annual screening examination. PERTINENT HISTORY: Non-contributory. TECHNIQUE: Digital bilateral breast deya (3D mammographic acquisition) in the CC and MLO projections. 2-D mediolateral oblique (MLO) and craniocaudad (CC) views of both breasts were obtained. CAD: Full Field Digital Mammography with Computer Added Detection was performed. COMPARISON: Comparison is made with prior study dated March 26, 2018. FINDINGS: Breast Composition: There are scattered areas of fibroglandular density. There are no dominant masses or suspicious calcifications. No other significant abnormalities are identified. There has been no significant change since the prior study. BI/SCREEN MAMM (CAD) W/DEYA BILAT IMPRESSION: Stable bilateral screening mammogram. Yearly follow-up mammogram recommended. (A) ASSESSMENT CATEGORY: BIRADS Category 1: Negative. A letter regarding these results will be sent to the patient by the facility within 30 days. Approximately 10% of breast cancers are not detected by mammography. A normal mammogram should not delay biopsy of a clinically suspicious abnormality. [id number] Electronically Signed: Logan Ashley, at 13:10 EST , Service support ,
== END ==
PROVIDERS: PCP Family Medicine; Referring Provider Family Medicine; Visit Provider Family Medicine
DX: Z12.31 Encounter for screening mammogram for malignant neoplasm of breast (principal)
CPT/HCPCS: 77063; 77067

== ENCOUNTER 2019-10-27 09:00 | Outpatient (RCR) | payer MEDICAID, SELFPAY ==
[2018-12-11 10:02] VITALS: BMI 33.5
--- NOTE | 2019-08-22 09:29 | HP.OTEVAL_ITS ---
Patient's Visit Information RANDY SANTOYO is a 53 year old F, referred to Occupational Therapy by ADALI RUIZ, with a diagnosis of left trigger finger. Date of Evaluation: 08/20/19 Occupational Therapist: YURI Mandujano/Nara, CHT - Subjective Subjective: This 53 year old female was seen for OT eval following trigger finger release- pt states she had symptoms of trigger finger for about 3 months. Pt states she had sx 2018 and is now struggling with ROM and return of her strength. 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 pt states she stopped due to pain up her arms. - ADLs Fasteners: Snaps Kitchen: Chop with knife, Open jars, Open bottle caps, Lift saucepan, Take dish out of oven, Load/unload superintendent water and sewer systems, Place dish in microwave Household: Vacuum, Sweep/mop - Pain left hand 4 Pain Intensity Range: 0, 4 - ROM ROM Comments: left MF MCP -10/80. left MF PIP -25/75. pt demo full functional ROM of right hand- left hand limited with full digit ext and full composite flex. limiting use of left hand- - Strength Emt P: right 15# left 5# Lateral Pinch: right 8# left 2# Tripod Pinch: right 6# left 6# - Sensation Sensation Comments: denies - Goals Goal:: PT will demo an increase in oil field tester strength by 30# to increase independent with basic occupations of daily living to return pt to PLOF by D/C. Pt will demo an increase in lateral and tripod pinch by 4# to increase pts independent with opening baggies, containers at PLOF by D/C. Goal:: Pt will demo a increase in digit ext by 10* to increase pts ind. with placing hand flat on table tops by d/c Goal:: pt will report pain no greater than 1/10 with use of left UE with ADLs and IADLs by d/c Goal:: pt will demo understanding of scar mtg and desensitization by end of 2nd session to decrease risk of scar adhesions. - Rehabilitation General Assessment: pt demo with weakness and limited finger ext. following trigger finger release- pt demo with scar hypersensitivity limiting use of left UE with ADLs and IADLS. pt would benefit from skilled OT services 1-2 x week for 4-6 weeks to return pt to PLOF. Today pt was ed. on scar mtg and desensitization and tendon glide ex. Rehabilitation Potential: Good - Anticipated Interventions Anticipated Interventions: A/AAROM/PROM, Strengthening, Scar Care, Triggerpoint Release, Modalities, Joint Protection/Energy Conservation - Visit Plan Frequency: 2-3x /Week Duration: 4 Weeks TEXT: Thank you for the opportunity to evaluate your patient. For Medicare and Medicare HMO plans, please review the plan of care and approve it. It will need to be FAXED BACK to us at [phone] for Medicare purposes. Please let me know if there are questions or concerns regarding this plan of care. Physician Signature: Date:
--- NOTE | 2019-09-04 13:01 | HP.OTEVAL_ITS ---
Patient's Visit Information RANDY SANTOYO is a 53 year old F, referred to Occupational Therapy by ADALI RUIZ, with a diagnosis of left trigger finger. Date of Evaluation: 08/20/19 Occupational Therapist: YURI Mandujano/Nara, CHT - Subjective Subjective: This 53 year old female was seen for OT eval following trigger finger release- pt states she had symptoms of trigger finger for about 3 months. Pt states she had sx 2018 and is now struggling with ROM and return of her strength. 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 pt states she stopped due to pain up her arms. - ADLs Fasteners: Snaps Kitchen: Chop with knife, Open jars, Open bottle caps, Lift saucepan, Take dish out of oven, Load/unload injection molding machine tender, Place dish in microwave Household: Vacuum, Sweep/mop - Pain left hand 4 Pain Intensity Range: 0, 4 - ROM ROM Comments: left MF MCP -10/80. left MF PIP -25/75. pt demo full functional ROM of right hand- left hand limited with full digit ext and full composite flex. limiting use of left hand- - Strength Electrical Apprentice: right 15# left 5# Lateral Pinch: right 8# left 2# Tripod Pinch: right 6# left 6# - Sensation Sensation Comments: denies - Quick DASH-Disab of Arm,Shoulder& Hand Quick DASH Score: 59.0900 - Goals Goal:: LTG to be reached week 6: PT will demo an increase in industrial service technician strength by 30# to increase independent with basic occupations of daily living to return pt to PLOF by D/C. STG to be reached week 3: Pt will demo an increase in lateral and tripod pinch by 4# to increase pts independent with opening baggies, containers at PLOF by D/C. Goal:: STG to be reached in 3weeks: Pt will demo a increase in digit ext by 10* to increase pts ind. with placing hand flat on table tops. Goal:: pt will report pain no greater than 1/10 with use of left UE with ADLs and IADLs by d/c Goal:: STG to be reached week 1. pt will demo understanding of scar mtg and desensitization by end of 2nd session to decrease risk of scar adhesions. - Rehabilitation General Assessment: pt demo with weakness and limited finger ext. following trigger finger release- pt demo with scar hypersensitivity limiting use of left UE with ADLs and IADLS. pt would benefit from skilled OT services 2 x week for 6 weeks to return pt to PLOF. Today pt was ed. on scar mtg and desensitization and tendon glide ex. pt was given handout and demo understanding of ex and agree to POC Rehabilitation Potential: Good - Anticipated Interventions Anticipated Interventions: A/AAROM/PROM, Strengthening, Scar Care, Triggerpoint Release, Modalities, Joint Protection/Energy Conservation - Visit Plan Frequency: 2x /Week Duration: 6 Weeks TEXT: Thank you for the opportunity to evaluate your patient. For Medicare and Medicare HMO plans, please review the plan of care and approve it. It will need to be FAXED BACK to us at [phone] for Medicare purposes. Please let me know if there are questions or concerns regarding this plan of care. Physician Signature: Date:
--- NOTE | 2020-01-24 09:17 | HP.OTDCSUM ---
It has been my pleasure to treat RANDY SANTOYO under orders from ADALI RUIZ, for the diagnosis of left trigger finger for a total of 7 visit(s). Please see the following information for a summary of their discharge status. 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 STG to be reached week 3: Pt will demo an increase in lateral and tripod pinch by 4# to increase pts independent with opening baggies, containers at PLOF by D/C. Goal:: STG to be reached in 3weeks: Pt will demo a increase in digit ext by 10* to increase pts ind. with placing hand flat on table tops. Goal:: pt will report pain no greater than 1/10 with use of left UE with ADLs and IADLs by d/c Goal:: STG to be reached week 1. pt will demo understanding of scar mtg and desensitization by end of 2nd session to decrease risk of scar adhesions. Plan: give T-band HEP for bilateral UE. one more visit If there are questions or concerns regarding this patient's occupational therapy, please fell free to call me at [phone]. Thank you for the referral of this patient. Sincerely, Zora Weller, OTR/L, CHT
== END 2019-10-27 19:00 | disposition home or self-care (01) ==
LOC: OT 09:00
PROVIDERS: Family Provider Family Medicine; PCP Family Medicine
DX: M65.342 Trigger finger, left ring finger (principal); M65.332 Trigger finger, left middle finger
CPT/HCPCS: 97035; 97110; 97140; 97166; 97530

== ENCOUNTER → 2019-12-03 11:27 | Outpatient (CLI) | payer MEDICAID, SELFPAY ==
[2019-11-06 10:12] VITALS: BMI 36.6
[2019-12-03 17:14] LABS: Anion Gap 10 (5-15); BUN 12 mg/dL (7-18); BUN/Creat Ratio 18.8 RATIO (10-20); Calcium,Total 9.4 mg/dL (8.5-10.1); Chloride 102 mmol/L (98-107); Creatinine, Serum 0.64 mg/dL (0.55-1.02); EST Glomerular Filtration Rate 103 mL/min (>60); Est Glom Filt Rate - Afr Amer 124 mL/min (>60); Glucose 160 mg/dL (74-106); Magnesium 1.4 mg/dL (1.6-2.6); Potassium 3.3 mmol/L (3.5-5.1); Sodium Level 139 mmol/L (136-145); T4 Free Direct 0.94 ng/dL (0.76-1.46); Thyroid Stim Hormone (TSH) 2.59 uIU/mL (0.358-3.74)
== END ==
PROVIDERS: PCP Family Medicine; Visit Provider Family Medicine
DX: I10 Essential (primary) hypertension (principal); R00.2 Palpitations
CPT/HCPCS: 36415; 80048; 83735; 84439; 84443

== ENCOUNTER → 2020-04-14 11:19 | Outpatient (CLI) | payer MEDICAID, SELFPAY ==
[2019-11-06 10:12] VITALS: BMI 36.6
[2019-12-18 10:12] VITALS: BMI 36.6
[2020-04-14 15:45] LABS: Anion Gap 4 (5-15); BUN 12 mg/dL (7-18); BUN/Creat Ratio 15.7 RATIO (10-20); Calcium,Total 9.2 mg/dL (8.5-10.1); Chloride 99 mmol/L (98-107); Creatinine, Serum 0.76 mg/dL (0.55-1.02); EST Glomerular Filtration Rate 84 mL/min (>60); Est Glom Filt Rate - Afr Amer 101 mL/min (>60); Glucose 334 mg/dL (74-106); Potassium 4.1 mmol/L (3.5-5.1); Sodium Level 134 mmol/L (136-145)
== END ==
PROVIDERS: PCP Family Medicine; Visit Provider Family Medicine
DX: I10 Essential (primary) hypertension (principal); E83.42 Hypomagnesemia
CPT/HCPCS: 36415; 80048

== ENCOUNTER → 2021-01-18 09:32 | Outpatient (CLI) | payer MEDICAID, SELFPAY ==
[2019-12-18 10:12] VITALS: BMI 36.6
[2021-01-18 12:20] LABS: Absolute Lymphocyte Count 2.87 X10^3/uL (0.83-4.51); Absolute Neutrophil Count 4.1 X10^3/uL (2.0-7.7); Basophil# 0.05 X10^3/uL; Basophil% 0.6 % (0-1); Eosinophil# 0.22 X10^3/uL; Eosinophils% 2.8 % (0-5); Hematocrit 45.1 % (37-47); Hemoglobin 14.5 g/dL (12.0-15.0); Lymphocyte # 2.87 X10^3/ul (0.83-4.51); Lymphocyte % 36.2 % (19-41); Mean Corp Hgb Conc 32.2 g/dL (32-36); Mean Corpuscular Hgb 27.4 pg (27.0-32.0); Mean Corpuscular Volume 85.1 fL (81-99); Mean Platelet Vol. 10.7 fl (6.2-12.0); Monocyte# 0.66 X10^3/uL; Monocyte% 8.3 % (0-10); NRBC Flagged by Analyzer 0 % (0-5); Neutrophil # 4.07 X10^3/uL (2.7-7.7); Neutrophil % 51.3 % (47-70); Platelet Count 243 K/mm3 (150-450); RBC Distribution Width CV 13.8 % (11.6-14.6); RBC Distribution Width SD 42.6 fl (35.1-43.9); White Blood Count 7.9 K/mm3 (4.4-11.0)
[2021-01-18 12:33] LABS: Vitamin D,25 Hydroxy 24.6 ng/mL
[2021-01-18 12:38] LABS: ALB/GLOB Ratio 1.2 RATIO (0.9-2.4); AST(SGOT) 28 U/L (15-37); Alanine Aminotransfer ALT/SGPT 43 U/L (13-56); Alkaline Phosphatase 78 U/L (45-117); Anion Gap 8 (5-15); BUN 14 mg/dL (7-18); BUN/Creat Ratio 21.3 RATIO (10-20); Calcium,Total 8.9 mg/dL (8.5-10.1); Chloride 106 mmol/L (98-107); Creatinine, Serum 0.66 mg/dL (0.55-1.02); EST Glomerular Filtration Rate 99 mL/min (>60); Est Glom Filt Rate - Afr Amer 120 mL/min (>60); Globulin 3.3 g/dL (2.2-4.2); Glucose 88 mg/dL (74-106); Magnesium 2.1 mg/dL (1.6-2.6); Potassium 3.5 mmol/L (3.5-5.1); Protein, Total 7.3 g/dL (6.4-8.2); Sodium Level 142 mmol/L (136-145)
== END ==
PROVIDERS: PCP Family Medicine; Referring Provider Family Medicine; Visit Provider Family Medicine
DX: I10 Essential (primary) hypertension (principal); E55.9 Vitamin D deficiency, unspecified; E11.65 Type 2 diabetes mellitus with hyperglycemia; E83.42 Hypomagnesemia
CPT/HCPCS: 36415; 80053; 82306; 83735; 84443; 85025

== ENCOUNTER → 2021-02-21 13:06 | Outpatient (CLI) | payer MEDICAID, SELFPAY ==
[2019-12-18 10:12] VITALS: BMI 36.6
[2021-02-16 13:23] VITALS: BMI 36.6
--- NOTE | 2021-02-21 13:08 | BI_ITS ---
MAMMOGRAPHY - BILATERAL SCREENING REASON FOR EXAM: Female, 55 years old. Routine annual screening examination. PERTINENT HISTORY: Non-contributory. TECHNIQUE: Digital bilateral breast deya (3D mammographic acquisition) in the CC and MLO projections. 2-D mediolateral oblique (MLO) and craniocaudad (CC) views of both breasts were obtained. CAD: Full Field Digital Mammography with Computer Added Detection was performed. COMPARISON: Comparison is made with prior study dated 10/17/2019 and 03/26/2018. FINDINGS: Breast Composition: There are scattered areas of fibroglandular density. There are no dominant masses or suspicious calcifications. Stable benign-appearing bilateral axillary lymph nodes. No other significant abnormalities are identified. There has been no significant change since the prior study. BI/SCRN MAMM (CAD)W/DEYA BILAT IMPRESSION: Stable bilateral screening mammogram. Yearly follow-up mammogram recommended. (A) ASSESSMENT CATEGORY: BIRADS Category 2: Benign. A letter regarding these results will be sent to the patient by the facility within 30 days. Approximately 10% of breast cancers are not detected by mammography. A normal mammogram should not delay biopsy of a clinically suspicious abnormality. [id number] Electronically Signed: Logan Ashley MD at 14:14 EDT , Service support ,
== END ==
PROVIDERS: PCP Family Medicine; Referring Provider Family Medicine; Visit Provider Family Medicine
DX: Z12.31 Encounter for screening mammogram for malignant neoplasm of breast (principal)
CPT/HCPCS: 77063; 77067

== ENCOUNTER → 2021-04-05 11:46 | Outpatient (CLI) | payer MEDICAID, SELFPAY ==
[2021-02-16 13:23] VITALS: BMI 36.6
[2021-04-05 15:33] LABS: Vitamin D,25 Hydroxy 50.6 ng/mL
== END ==
PROVIDERS: PCP Family Medicine; Referring Provider Family Medicine; Visit Provider Family Medicine
DX: E55.9 Vitamin D deficiency, unspecified (principal)
CPT/HCPCS: 36415; 82306

== ENCOUNTER 2021-04-26 16:11 | Emergency (ER) | payer MEDICAID, SELFPAY ==
[2021-02-16 13:23] VITALS: BMI 36.6
[2021-04-26 16:12] VITALS: BP 149/60; PULSE 86; RESP 15; TEMP 36.4; O2SAT 99; BMI 34.7
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
== END 2021-04-26 19:24 | disposition home or self-care (01) ==
PROVIDERS: Emergency Provider Emergency Medicine; PCP Family Medicine
DX: S82.51XA Displaced fracture of medial malleolus of right tibia, initial encounter for closed fracture (principal); V86.99XA Unspecified occupant of other special all-terrain or other off-road motor vehicle injured in nontraffic accident, initial encounter; Y93.9 Activity, unspecified; Y92.9 Unspecified place or not applicable; I10 Essential (primary) hypertension; E11.9 Type 2 diabetes mellitus without complications; E66.9 Obesity, unspecified; Z68.34 Body mass index [BMI] 34.0-34.9, adult; E78.5 Hyperlipidemia, unspecified; G56.00 Carpal tunnel syndrome, unspecified upper limb; K21.9 Gastro-esophageal reflux disease without esophagitis; Z87.448 Personal history of other diseases of urinary system; Z79.4 Long term (current) use of insulin; Z79.82 Long term (current) use of aspirin; Z79.899 Other long term (current) drug therapy; Z87.891 Personal history of nicotine dependence
CPT/HCPCS: 73630; 99283

== ENCOUNTER → 2022-09-01 | Outpatient (CLI) | payer BC, MEDICAID, SELFPAY ==
--- NOTE | 2022-09-01 12:21 | BI_ITS ---
MAMMOGRAPHY - BILATERAL SCREENING REASON FOR EXAM: Female, 56 years old. Routine annual screening examination. PERTINENT HISTORY: Non-contributory. TECHNIQUE: Digital bilateral breast deya (3D mammographic acquisition) in the CC and MLO projections. 2-D mediolateral oblique (MLO) and craniocaudad (CC) views of both breasts were obtained. CAD: Full Field Digital Mammography with Computer Added Detection was performed. COMPARISON: Comparison is made with prior study dated 02/21/2021 and 10/17/2019. FINDINGS: Breast Composition: There are scattered areas of fibroglandular density. There are no dominant masses or suspicious calcifications. No other significant abnormalities are identified. There has been no significant change since the prior study. BI/SCRN MAMM (CAD)W/DEYA BILAT IMPRESSION: Stable bilateral screening mammogram. Yearly follow-up mammogram recommended. (A) ASSESSMENT CATEGORY: BIRADS Category 1: Negative. A letter regarding these results will be sent to the patient by the facility within 30 days. Approximately 10% of breast cancers are not detected by mammography. A normal mammogram should not delay biopsy of a clinically suspicious abnormality. [id number] Electronically Signed: Logan Ashley MD at 12:57 EST ,
== END | disposition home or self-care (01) ==
LOC: OPBI 12:20
PROVIDERS: PCP Family Medicine; Visit Provider Family Medicine
DX: Z12.31 Encounter for screening mammogram for malignant neoplasm of breast (principal)
CPT/HCPCS: 77063; 77067

== ENCOUNTER → 2023-02-02 | Outpatient (CLI) | payer BC, SELFPAY ==
[2023-02-02 12:31] LABS: Absolute Lymphocyte Count 2.55 X10^3/uL (0.83-4.51); Absolute Neutrophil Count 5.4 X10^3/uL (2.0-7.7); Basophil# 0.06 X10^3/uL; Basophil% 0.7 % (0-1); Eosinophil# 0.25 X10^3/uL; Eosinophils% 2.8 % (0-5); Hematocrit 45.4 % (37-47); Hemoglobin 14.4 g/dL (12.0-15.0); Lymphocyte # 2.55 X10^3/ul (0.83-4.51); Lymphocyte % 28.5 % (19-41); Mean Corp Hgb Conc 31.7 g/dL (32-36); Mean Corpuscular Hgb 27.5 pg (27.0-32.0); Mean Corpuscular Volume 86.6 fL (81-99); Mean Platelet Vol. 10.6 fl (6.2-12.0); Monocyte# 0.66 X10^3/uL; Monocyte% 7.4 % (0-10); NRBC Flagged by Analyzer 0 % (0-5); Neutrophil # 5.38 X10^3/uL (2.7-7.7); Platelet Count 245 K/mm3 (150-450); RBC Distribution Width CV 14.2 % (11.6-14.6); RBC Distribution Width SD 45.2 fl (35.1-43.9); Red Blood Count 5.24 M/mm3 (4.2-5.4)
[2023-02-02 12:45] LABS: ALB/GLOB Ratio 1.1 RATIO (0.9-2.4); AST(SGOT) 17 U/L (15-37); Alanine Aminotransfer ALT/SGPT 41 U/L (13-56); Albumin, Serum 3.7 g/dL (3.2-5.0); Alkaline Phosphatase 71 U/L (45-117); Anion Gap 6 (5-15); BUN 14 mg/dL (7-18); BUN/Creat Ratio 18.2 RATIO (10-20); Calcium,Total 9.2 mg/dL (8.5-10.1); Chloride 108 mmol/L (98-107); Cholesterol 129 mg/dL (200); Creatinine, Serum 0.77 mg/dL (0.55-1.02); EST Glomerular Filtration Rate 82 mL/min (>60); Est Glom Filt Rate - Afr Amer 100 mL/min (>60); Globulin 3.5 g/dL (2.2-4.2); Glucose 194 mg/dL (74-106); High Density Lipoprotein 30 mg/dL; Magnesium 1.6 mg/dL (1.6-2.6); Protein, Total 7.2 g/dL (6.4-8.2); Sodium Level 139 mmol/L (136-145); Triglycerides 224 mg/dL; Very Low Density Lipoprotein 45 mg/dL (5-40); Vitamin D,25 Hydroxy 33.5 ng/mL
[2023-02-02 12:49] LABS: Hemoglobin A1c 7.1 % (3.8-5.6)
== END | disposition home or self-care (01) ==
LOC: BFHLAB 08:18
PROVIDERS: Nurse Practitioner Family; PCP Family Medicine; Visit Provider Nurse Practitioner Family
DX: Z00.00 Encounter for general adult medical examination without abnormal findings (principal); I10 Essential (primary) hypertension; E83.42 Hypomagnesemia; E55.9 Vitamin D deficiency, unspecified
CPT/HCPCS: 36415; 80053; 80061; 82306; 83036; 83735; 85025

== ENCOUNTER 2024-02-18 13:50 | Outpatient (CLI) | payer BC, SELFPAY ==
[2024-02-18 17:39] LABS: Absolute Lymphocyte Count 2.81 X10^3/uL (0.83-4.51); Absolute Neutrophil Count 5.5 X10^3/uL (2.0-7.7); Basophil# 0.06 X10^3/uL; Basophil% 0.6 % (0-1); Eosinophil# 0.17 X10^3/uL; Eosinophils% 1.8 % (0-5); Hemoglobin 14.6 g/dL (12.0-15.0); Lymphocyte # 2.81 X10^3/ul (0.83-4.51); Lymphocyte % 30.2 % (19-41); Mean Corp Hgb Conc 31.7 g/dL (32-36); Mean Corpuscular Hgb 27.1 pg (27.0-32.0); Mean Corpuscular Volume 85.5 fL (81-99); Mean Platelet Vol. 10.9 fl (6.2-12.0); Monocyte# 0.73 X10^3/uL; Monocyte% 7.8 % (0-10); NRBC Flagged by Analyzer 0 % (0-5); Neutrophil # 5.51 X10^3/uL (2.7-7.7); Neutrophil % 59.2 % (47-70); Platelet Count 239 K/mm3 (150-450); RBC Distribution Width CV 15.2 % (11.6-14.6); RBC Distribution Width SD 47.3 fl (35.1-43.9); Red Blood Count 5.38 M/mm3 (4.2-5.4); White Blood Count 9.3 K/mm3 (4.4-11.0)
[2024-02-18 18:04] LABS: Vitamin D,25 Hydroxy 86.2 ng/mL
[2024-02-18 18:33] LABS: ALB/GLOB Ratio 1.1 RATIO (0.9-2.4); AST(SGOT) 19 U/L (15-37); Alanine Aminotransfer ALT/SGPT 29 U/L (13-56); Albumin, Serum 3.8 g/dL (3.2-5.0); Alkaline Phosphatase 75 U/L (45-117); Anion Gap 7 (5-15); BUN 15 mg/dL (7-18); BUN/Creat Ratio 21.3 RATIO (10-20); Calcium,Total 9.4 mg/dL (8.5-10.1); Chloride 106 mmol/L (98-107); Cholesterol 123 mg/dL (200); EST Glomerular Filtration Rate 91 mL/min (>60); Est Glom Filt Rate - Afr Amer 110 mL/min (>60); Globulin 3.4 g/dL (2.2-4.2); Glucose 97 mg/dL (74-106); High Density Lipoprotein 34 mg/dL; Magnesium 2.2 mg/dL (1.6-2.6); Potassium 3.8 mmol/L (3.5-5.1); Protein, Total 7.2 g/dL (6.4-8.2); Sodium Level 140 mmol/L (136-145); Thyroid Stim Hormone (TSH) 1.31 uIU/mL (0.358-3.74); Triglycerides 291 mg/dL; Very Low Density Lipoprotein 58 mg/dL (5-40)
[2024-02-22 19:33] LABS: Microalbumin,Random Urine < 5.0 mg/L (NO RANGE EST.)
== END 2024-02-18 23:59 | disposition home or self-care (01) ==
LOC: BFHLAB 13:51
PROVIDERS: Nurse Practitioner Family; PCP Nurse Practitioner Family; Referring Provider Nurse Practitioner Family; Visit Provider Nurse Practitioner Family
DX: Z00.01 Encounter for general adult medical examination with abnormal findings (principal); E11.65 Type 2 diabetes mellitus with hyperglycemia; Z79.4 Long term (current) use of insulin; I10 Essential (primary) hypertension; E55.9 Vitamin D deficiency, unspecified; E03.9 Hypothyroidism, unspecified
CPT/HCPCS: 80053; 80061; 82043; 82306; 82570; 83735; 84443; 85025

== ENCOUNTER → 2024-02-27 | Outpatient (CLI) | payer BC, SELFPAY ==
--- NOTE | 2024-02-27 14:31 | BI_ITS ---
MAMMOGRAPHY - BILATERAL SCREENING REASON FOR EXAM: Female, 58 years old. Routine annual screening examination. PERTINENT HISTORY: Non-contributory. TECHNIQUE: Digital bilateral breast deya (3D mammographic acquisition) in the CC and MLO projections. 2-D mediolateral oblique (MLO) and craniocaudad (CC) views of both breasts were obtained. CAD: Full Field Digital Mammography with Computer Added Detection was performed. COMPARISON: Comparison is made with prior study dated September 01, 2022 and February 21, 2021. FINDINGS: Breast Composition: There are scattered areas of fibroglandular density. There are no dominant masses or suspicious calcifications. No other significant abnormalities are identified. There has been no significant change since the prior study. BI/SCRN MAMM (CAD)W/DEYA BILAT IMPRESSION: Stable bilateral screening mammogram. Yearly follow-up mammogram recommended. (A) ASSESSMENT CATEGORY: BIRADS Category 1: Negative. A letter regarding these results will be sent to the patient by the facility within 30 days. Approximately 10% of breast cancers are not detected by mammography. A normal mammogram should not delay biopsy of a clinically suspicious abnormality. [id number] Electronically Signed: Logan Ashley MD at 15:14 EDT ,
== END | disposition home or self-care (01) ==
LOC: OPBI 14:30
PROVIDERS: PCP Nurse Practitioner Family; Visit Provider Nurse Practitioner Family
DX: Z12.31 Encounter for screening mammogram for malignant neoplasm of breast (principal)
CPT/HCPCS: 77063; 77067

== ENCOUNTER → 2024-10-15 | Outpatient (CLI) | payer BC, SELFPAY ==
[2024-10-15 13:11] LABS: ALB/GLOB Ratio 1.1 RATIO (0.9-2.4); AST(SGOT) 24 U/L (15-37); Alanine Aminotransfer ALT/SGPT 30 U/L (13-56); Albumin, Serum 3.8 g/dL (3.2-5.0); Alkaline Phosphatase 62 U/L (45-117); Anion Gap 7 (5-15); BUN 17 mg/dL (7-18); BUN/Creat Ratio 23.9 RATIO (10-20); Calcium,Total 9.6 mg/dL (8.5-10.1); Chloride 105 mmol/L (98-107); Creatinine, Serum 0.71 mg/dL (0.55-1.02); EST Glomerular Filtration Rate 89 mL/min (>60); Est Glom Filt Rate - Afr Amer 108 mL/min (>60); Globulin 3.4 g/dL (2.2-4.2); Glucose 132 mg/dL (74-106); Potassium 4.2 mmol/L (3.5-5.1); Protein, Total 7.2 g/dL (6.4-8.2); Sodium Level 142 mmol/L (136-145)
== END | disposition home or self-care (01) ==
LOC: LAB 12:23
PROVIDERS: PCP Nurse Practitioner Family; Referring Provider Nurse Practitioner Family; Visit Provider Nurse Practitioner Family
DX: E87.6 Hypokalemia (principal)
CPT/HCPCS: 36415; 80053

== ENCOUNTER → 2025-08-31 | Outpatient (CLI) | payer OTHER, SELFPAY ==
--- NOTE | 2025-08-31 10:00 | RAD_ITS ---
PROCEDURE: KNEE 4 OR MORE VIEWS 08/31/2025 REASON FOR EXAM: KNEE PAIN TECHNIQUE: Procedure Code: RADKN Modality: DX Procedure: KNEE 4 OR MORE VIEWS Right knee five views COMPARISON: None FINDINGS: There is no fracture or dislocation. There is minimal spurring at the patellofemoral articulation. There is no significant effusion. Mineralization is normal. Atherosclerotic calcifications are visible. RAD/Knee 4 or More Views IMPRESSION: No fracture or dislocation is identified. Reading Location: [facility]
== END | disposition home or self-care (01) ==
PROVIDERS: PCP Nurse Practitioner Family; Referring Provider Nurse Practitioner Family; Visit Provider Nurse Practitioner Family
DX: M25.561 Pain in right knee (principal)
CPT/HCPCS: 73564

== ENCOUNTER → 2025-08-31 | Outpatient (CLI) | payer OTHER, SELFPAY ==
[2025-08-31 09:00] LABS: Creatinine, Urine (random) 110.00 mg/dL (28.00-217.00); Microalbumin,Random Urine 12.6 mg/L (<20 mg/L)
[2025-08-31 09:21] LABS: Cholesterol 142 mg/dL (<=200); Low Density Lipoprotein Calc. 61 mg/dL; Triglycerides 296 mg/dL; Very Low Density Lipoprotein 59 mg/dL (5-40); Vitamin D,25 Hydroxy 48.9 ng/mL (30-100); cholesterol:hdl ratio screen 4.13
[2025-08-31 09:23] LABS: AST(SGOT) 21 U/L (<=31); Alanine Aminotransfer ALT/SGPT 15 U/L (<=34); Albumin, Serum 4.3 g/dL (3.5-5.0); Alkaline Phosphatase 65 U/L (35-104); Anion Gap 12 (5-15); BUN 16 mg/dL (4-19); BUN/Creat Ratio 25.1 RATIO (10-20); Calcium,Total 9.3 mg/dL (7.6-11.0); Carbon Dioxide 25.3 mmol/L (21.0-32.0); Chloride 102 mmol/L (98-108); Globulin 2.6 g/dL (2.2-4.2); Glucose 99 mg/dL (70-99); Potassium 3.9 mmol/L (3.3-5.1)
[2025-08-31 09:47] LABS: Magnesium 2.0 mg/dL (1.5-2.2)
== END | disposition home or self-care (01) ==
LOC: LAB 07:53
PROVIDERS: PCP Nurse Practitioner Family; Visit Provider Nurse Practitioner Family
DX: Z00.01 Encounter for general adult medical examination with abnormal findings (principal); E11.65 Type 2 diabetes mellitus with hyperglycemia; Z79.4 Long term (current) use of insulin; I10 Essential (primary) hypertension; E83.42 Hypomagnesemia; E55.9 Vitamin D deficiency, unspecified; E03.9 Hypothyroidism, unspecified
CPT/HCPCS: 36415; 80053; 80061; 82043; 82306; 82570; 83735; 84443